=== PATIENT | male | born 1985 ===

== ENCOUNTER 2021-05-29 02:46 | Outpatient (CLI) | payer BC, SELFPAY ==
[2021-05-29 11:44] LABS: HCT 39.4 % (40.0-50.0); HGB 12.8 g/dL (13.5-17.5); MCH 21.6 pg (27.0-33.0); MCHC 32.5 % (32.0-36.0); MCV 66.6 fL (80-95); Platelet Count 206 10^3/uL (130-400); RBC 5.92 10^6/uL (4.36-5.78); RDW 15.2 % (11.8-14.1); RDW-SD 34.5 fL; WBC 5.05 10^3/uL (4.4-10.8)
[2021-05-30 15:34] LABS: Hemoglobinopathy Interpretat (See Note)
== END 2021-05-29 02:47 | disposition home or self-care (01) ==
LOC: LBO 02:46
PROVIDERS: Visit Provider Obstetrics & Gynecology
DX: Z31.69 Encounter for other general counseling and advice on procreation (principal)
CPT/HCPCS: 36415; 85027; 83020